=== PATIENT | male | born 1995 | race African-American/Black ===

== ENCOUNTER 2019-01-15 13:40 | Emergency (ER) | payer SELFPAY | END 2019-01-15 14:54 | disposition left against medical advice (07) | LOC: ER 13:40 | DX: Z53.21 Procedure and treatment not carried out due to patient leaving prior to being seen by health care provider (principal) ==

== ENCOUNTER 2019-01-20 13:45 | Emergency (ER) | payer BC ==
[~2019-01-20] VITALS: Ht 188 cm; Wt 79.0 kg
[2019-01-20 13:54] VITALS: BP 121/72
== END 2019-01-20 15:39 | disposition home or self-care (01) ==
LOC: ER 13:45
DX: G44.009 Cluster headache syndrome, unspecified, not intractable (principal)
CPT/HCPCS: 99281

== ENCOUNTER 2019-02-01 15:44 | Emergency (ER) | payer BC | END 2019-02-01 19:20 | disposition left against medical advice (07) | LOC: ER 15:44 | DX: Z53.21 Procedure and treatment not carried out due to patient leaving prior to being seen by health care provider (principal) ==

== ENCOUNTER 2019-02-02 18:33 | Emergency (ER) | payer BC ==
[~2019-02-02] VITALS: Ht 175.3 cm; Wt 78.0 kg
[2019-02-02] MEDS ORDERED: TRAMADOL 50MG TABLET PO ONE (19:30)
[2019-02-02 21:11] VITALS: BP 118/79
== END 2019-02-02 21:12 | disposition home or self-care (01) ==
LOC: ER 18:33
DX: R51 Headache (principal); H57.12 Ocular pain, left eye
CPT/HCPCS: 99283

== ENCOUNTER 2019-03-09 03:31 | Emergency (ER) | payer BC ==
[~2019-03-09] VITALS: Ht 177.8 cm; Wt 68.0 kg
[2019-03-09] MEDS ORDERED: SODIUM CHLORIDE 0.9% 1,000 ML IV ONE (04:11)
[2019-03-09] MEDS ORDERED: ONDANSETRON HCL 4MG/2ML INJ IV STA (04:11)
[2019-03-09] MEDS ORDERED: MORPHINE SULFATE 4 MG/ML CPJ (NOT FOR IM USE) IV STA (04:11)
[2019-03-09 04:36] LABS: BASOPHILS % 0.6 % (0.0-2.0); EOSINOPHILS % 1.1 % (0.0-5.0); HEMATOCRIT. 43.9 % (42.0-52.0); HEMOGLOBIN. 14.7 g/dL (14.0-18.0); MEAN CORPUSCULAR HEMOGLOBIN 29.3 pg (28.0-32.0); MEAN CORPUSCULAR VOLUME 87.5 fL (80.0-94.0); MEAN PLATELET VOLUME 6.6 fl (7.4-10.4); NEUTROPHILS % 73.3 % (40.0-76.0); PLATELET 247 x1000/uL (130-400); RED BLOOD CELL COUNT 5.02 mill/uL (4.7-6.1); RED CELL DISTRIBUTION WIDTH 14.1 % (11.6-14.6)
[2019-03-09 04:42] LABS: CHLORIDE 108 mEq/L (98-107)
[2019-03-09 05:22] LABS: CLARITY URINE CLEAR (CLEAR); COLOR URINE DARK YELLOW (YELLOW); KETONES URINE 3+ (NEGATIVE); LEUKOCYTE ESTERASE URINE TRACE (NEGATIVE); NITRITE URINE NEGATIVE (NEGATIVE); OCCULT BLOOD URINE NEGATIVE (NEGATIVE); PH URINE 5.5 (4.5-8.0); PROTEIN URINE NEGATIVE (NEGATIVE); SPECIFIC GRAVITY URINE 1.025 (1.005-1.030)
[2019-03-09] MEDS ORDERED: MORPHINE SULFATE 4 MG/ML CPJ (NOT FOR IM USE) IV ONE (05:45)
[2019-03-09] MEDS ORDERED: ONDANSETRON HCL 4MG/2ML INJ IV ONE (05:45)
[2019-03-09] MEDS ORDERED: LORAZEPAM 2MG/ML CPJ IV ONE (06:00)
[2019-03-09] MEDS ORDERED: IOHEXOL-300 100 ML BOTTLE ONE (06:20)
[2019-03-09 09:00] VITALS: BP 130/89
[2019-03-09] MEDS ORDERED: ONDANSETRON 4MG ODT PO ONE (09:00)
[2019-03-10 08:15] LABS: *AMPHETAMINES SCREEN URINE NEGATIVE (NEGATIVE); *BARBITURATES SCREEN URINE NEGATIVE (NEGATIVE); *BENZODIAZEPINES SCREEN URINE NEGATIVE (NEGATIVE); *COCAINE SCREEN URINE NEGATIVE (NEGATIVE)
[2019-03-10 08:16] LABS: CANNABINOID URINE SCREEN PRESUMTIVE POSITIVE (NEGATIVE); METHADONE URINE SCREEN NEGATIVE (NEGATIVE); OPIATES URINE SCREEN PRESUMTIVE POSITIVE (NEGATIVE); PHENCYCLIDINE URINE SCREEN NEGATIVE (NEGATIVE)
== END 2019-03-09 09:17 | disposition home or self-care (01) ==
LOC: ER 03:31
DX: R10.31 Right lower quadrant pain (principal); G43.909 Migraine, unspecified, not intractable, without status migrainosus; Z88.0 Allergy status to penicillin
CPT/HCPCS: 36415; 74177; 80053; 80305; 81003; 83690; 85025; 96374; 96375; 96376; 99284; J2270; J2405; J7030; Q0162; Q9967

== ENCOUNTER 2021-05-08 12:09 | Emergency (ER) | payer BC, MEDICAID ==
[~2021-05-08] VITALS: Ht 188 cm; Wt 74.0 kg
[2021-05-08 12:11] VITALS: BP 130/88
== END 2021-05-08 16:06 | disposition left against medical advice (07) ==
LOC: ER 12:09
DX: R68.89 Other general symptoms and signs (principal); Z53.21 Procedure and treatment not carried out due to patient leaving prior to being seen by health care provider